=== PATIENT | male | born 1990 | race Two or more races ===

== ENCOUNTER 2020-11-24 03:01 | Emergency (ER) | payer MEDICAID ==
[~2020-11-24] VITALS: Ht 180.3 cm; Wt 100.0 kg
[2020-11-24 03:45] VITALS: BP 136/71
[2020-11-24] MEDS ORDERED: ACETAMINOPHEN 500 MG TABLET ONE (03:55)
== END 2020-11-24 05:05 | disposition home or self-care (01) ==
LOC: EMS 03:01
DX: S05.11XA Contusion of eyeball and orbital tissues, right eye, initial encounter (principal); F12.90 Cannabis use, unspecified, uncomplicated; Z90.89 Acquired absence of other organs; Y00.XXXA Assault by blunt object, initial encounter; Y93.89 Activity, other specified; Y92.89 Other specified places as the place of occurrence of the external cause; Y99.8 Other external cause status
CPT/HCPCS: 70450; 70486; 99285